=== PATIENT | female | born 1980 | race Caucasian/White ===

== ENCOUNTER 2019-09-23 18:18 | Emergency (ER) | payer BC ==
[~2019-09-23] VITALS: Ht 160 cm; Wt 93.1 kg
[~2019-09-23 18:18] MED LIST: DEXAMETHASONE SOD PHOS 10 MG/ML VIAL IV ONE
[2019-09-23] MEDS ORDERED: KETOROLAC 30 MG/ML VIAL. IVP ONE (19:00)
--- NOTE | 2019-09-23 19:07 | PHYS DOC ---
Past History Past Medical History: Anxiety, Hypertension Past Surgical History: Alcohol Use: None General Adult EDM: Chief Complaint: LOWEREXTREMITY INJURY HPI: HPI: Patient is a 38-year-old female who presents POV with complaint of left-sided lower back pain along with left buttock pain that radiates down the back of her left leg. Patient states that symptoms have been present for the last few days and she has been taking ibuprofen for it with some relief but is just not going away. She denies any specific injury. She states that is been getting worse stating that she had to call in sick today. She states that she had a similar episode about a year ago for which she saw a chiropractor. She states that it took months of treatment and she finally got better but states that she does not think it was because of the work the chiropractor was doing. Patient is also concerned about the possibility of a blood clot after doing a web search of her symptoms. [] Review of Systems: Review of Systems: Constitutional: Denies fever or chills Respiratory: Denies cough or shortness of breath Cardiovascular: Denies chest pain or edema : Denies dysuria Musculoskeletal: Complains of lower back pain Integument: Denies rash Neurologic: Denies headache, focal weakness or sensory changes Heart Score: Risk Factors: Risk Factors: DM, Current or recent (<one month) smoker, HTN, HLP, family history of CAD, obesity. Risk Scores: Score 0 - 3: 2.5% MACE over next 6 weeks - Discharge Home Score 4 - 6: 20.3% MACE over next 6 weeks - Admit for Clinical Observation Score 7 - 10: 72.7% MACE over next 6 weeks - Early Invasive Strategies Current Medications: Current Meds: Current Medications Medications (Trade) Dose Ordered Sig/Joe Start Time Stop Time Status Last Admin Dose Admin Dexamethasone Sodium Phosphate (Decadron) 20 mg 1X ONCE 09/23/19 19:00 09/23/19 19:01 UNV Ketorolac Tromethamine (Toradol 30mg Vial) 30 mg 1X ONCE 09/23/19 19:00 09/23/19 19:01 UNV Physical Exam: PE: Constitutional: Well developed, well nourished, no acute distress, non-toxic appearance. [] Cardiovascular: Regular rate and rhythm [] Lungs & Thorax: Bilateral breath sounds clear to auscultation [] Skin: Warm, dry, no erythema, no rash. [] Back: There is left-sided paraspinal tenderness with spasm noted in lumbar region. [] Extremities: No tenderness, no cyanosis, no clubbing, ROM intact, no edema. [] Neurologic: Alert and oriented X 3, no focal deficits noted. [] Current Patient Data: Vital Signs: Vital Signs Date Time Temp Pulse Resp B/P (MAP) Pulse Ox O2 Delivery O2 Flow Rate FiO2 09/23/19 18:28 98.3 101 16 187/101 (129) 97 Room Air EKG: EKG: [] Radiology/Procedures: Radiology/Procedures: [] Course & Med Decision Making: Course & Med Decision Making Pertinent Labs and Imaging studies reviewed. (See chart for details) [] Dragon Disclaimer: Dragon Disclaimer: This electronic medical record was generated, in whole or in part, using a voice recognition dictation system. Departure Departure: Impression: Primary Impression: Low back pain Qualified Codes: M54.42 - Lumbago with sciatica, left side Disposition: HOME/RESIDENCE PRIOR TO ADM Condition: STABLE Referrals: KRISTEN GIPSON MD (PCP) Patient Instructions: Back Pain, Adult, Sciatica Scripts Orphenadrine Citrate (ORPHENADRINE CITRATE) 100 Mg Tablet.er 1 TAB PO BID PRN for MUSCLE SPASMS, #14 TAB Prov: TOD ANDREA Jr. DO 09/23/19 Hydrocodone Bit/Acetaminophen (NORCO 5-325 TABLET) 1 Each Tablet 1 TAB PO PRN Q6HRS PRN for PAIN, #12 TAB 0 Refills Prov: TOD ANDREA Jr. DO 09/23/19 Methylprednisolone (MEDROL) 4 Mg Tab.ds.pk 1 PKG PO UD for inflammation, #1 PKG Prov: TOD ANDREA Jr. DO 09/23/19 Diclofenac Sodium (DICLOFENAC SODIUM) 50 Mg Tablet.dr 1 TAB PO BID PRN for PAIN, #20 TAB Prov: TOD ANDREA Jr. DO 09/23/19 Justification of Admission: Justification of Admission: Justification of Admission Dx: Comment: (Not applicable) TOD ANDREA Jr. DO Sep 23, 2019 19:07
[2019-09-23] MEDS ORDERED: ORPHENADRINE CITRATE 60 MG/2 ML VIAL. IV ONE (19:15)
[2019-09-23] MEDS ORDERED: DEXAMETHASONE SOD PHOS 10 MG/ML VIAL ONE (19:19)
[2019-09-23] MEDS ORDERED: DICL50TA4 PO (20:03)
[2019-09-23] MEDS ORDERED: METH4TAB2 PO (20:03)
[2019-09-23] MEDS ORDERED: ORPH-16 PO (20:03)
[2019-09-23] MEDS ORDERED: HYDR-3165 PO (20:03)
[2019-09-23 20:22] VITALS: BP 153/95
== END 2019-09-23 20:22 | disposition home or self-care (01) ==
LOC: ER 18:18
DX: M54.42 Lumbago with sciatica, left side (principal); I10 Essential (primary) hypertension; F41.9 Anxiety disorder, unspecified; Z98.890 Other specified postprocedural states
CPT/HCPCS: 36415; 85379; 96374; 96375; 99284; J1100; J1885; J2360

== ENCOUNTER → 2021-01-02 | Outpatient (CLI) | payer BC ==
[~2021-01-02] MED LIST changes: -DEXAMETHASONE SOD PHOS 10 MG/ML VIAL IV ONE; +DICL50TA4 PO; +HYDR-3165 PO; +METH4TAB2 PO; +ORPH-16 PO
--- NOTE | 2021-01-09 13:25 | RAD ---
EXAM: Bilateral digital screening mammogram with tomosynthesis. HISTORY: 40-year-old female presents for screening mammography. TECHNIQUE: Full-field digital craniocaudal and mediolateral oblique 2D and 3D tomosynthesis images of both breasts are obtained for evaluation. Computer aided detection was applied. COMPARISON: None. This exam serves as a baseline mammogram. BREAST PARENCHYMAL DENSITY: Level B - Scattered fibroglandular densities. FINDINGS: There is no suspicious mass, microcalcification or region of architectural distortion. Ther e are areas of benign asymmetry and nodularity within both breasts. There are few punctate benign adela cifications. IMPRESSION: BI-RADS Category 2: Benign finding(s). RECOMMENDATION: Annual mammography is recommended. If your mammogram demonstrates that you have dense breast tissue, which could hide abnormalities, and if you have other risk factors for breast cancer that have been identified, you might benefit from s upplemental screening tests that may be suggested by your ordering physician. Dense breast tissue, i n and of itself, is a relatively common condition. This information is not provided to cause undue c oncern, but rather to raise your awareness and to promote discussion with your physician regarding th e presence of other risk factors, in addition to dense breast tissue. A report of your mammography re sults will be sent to you and your physician. You should contact your physician if you have any ques tions or concerns regarding this report. Mammography is a sensitive method for finding small breast cancers, but it does not detect them all a nd is not a substitute for careful clinical examination. A negative mammogram does not negate a clin ically suspicious finding and should not result in delay in biopsying a clinically suspicious abnorma lity. PQRS compliance statement - Patient information was entered into a reminder system with a target due date for the next mammogram. "Our facility is accredited by the [employer] Mammography [employer]." Electronically signed by: Enid Ballard MD (01/09/2021 1:22 PM) [id number]
== END ==
LOC: MAMMO 08:07
PROVIDERS: ATTEND Internal Medicine
DX: Z12.31 Encounter for screening mammogram for malignant neoplasm of breast (principal); R92.1 Mammographic calcification found on diagnostic imaging of breast
CPT/HCPCS: 77063; 77067